=== PATIENT | male | born 1990 | race Caucasian/White ===

== ENCOUNTER 2020-11-23 09:47 | Outpatient (CLI) | payer OTHER, SELFPAY ==
--- NOTE | ~2020-11-23 | CT_ITS ---
EXAMINATION: CT abdomen pelvis wo con DATE: 11/23/2020 10:16 INDICATION: Right lower quadrant pain TECHNIQUE: Computed tomography (CT) of the abdomen and pelvis was performed without intravenous contr ast. The dose-length product (DLP) was 1322.94 mGy-cm. Automated exposure control and iterative recon struction technique were employed. COMPARISON: 06/26/2019 FINDINGS: The lung bases are clear. The heart size is normal. The liver, spleen, pancreas, gallbladde r, and adrenal glands are normal. The kidneys are unremarkable. No pathologically enlarged abdominal or pelvic lymph nodes are identified. There is no free intraperitoneal gas or evidence of bowel obstr uction. The appendix is normal. There are changes of diverting colostomy in the left lower quadrant. There are multiple midline ventral hernias containing fat. There is fat herniating into the left lowe r quadrant colostomy. In addition, the anterior wall of a short segment of nonobstructed small bowel herniates through the colostomy defect in the abdominal wall.. IMPRESSION: 1. Changes of diverting colostomy in the left lower quadrant with herniation of fat and a short segme nt of nonobstructed small bowel through the colostomy defect. Reviewed, dictated and finalized at location B. IMPRESSION: 1. Changes of diverting colostomy in the left lower quadrant with herniation of fat and a short segment of nonobstructed small bowel through the colostomy def ect.
[2020-11-23 10:44] LABS: Basophils Absolute Auto 0.1 K/mm3 (0.0-0.1); Eosinophils Absolute Auto 0.3 K/mm3 (0-0.3); Eosinophils Percent Auto 4.5 % (0-4.4); Hematocrit 47.9 % (42.0-52.0); Hemoglobin 17.2 g/dL (14.0-18.0); Immature Granulocyte Absolute 0.02 K/mm3 (0.00-0.031); Immature Granulocyte Percent A 0.3 % (0-0.5); Lymphocytes Absolute Auto 2.84 K/mm3 (0.9-3.2); Lymphocytes Percent Auto 39.1 % (18.3-44.2); Mean Corpuscular HGB Conc 35.9 g/dl (32-36); Mean Corpuscular Hemoglobin 32.2 pg (26-34); Mean Corpuscular Volume 89.7 fl (80-100); Mean Platelet Volume 9.6 fl (7.4-10.4); Monocytes Absolute Auto 0.5 K/mm3 (0.1-0.6); Monocytes Percent Auto 6.3 % (2.6-8.5); Neutrophils Absolute Auto 3.6 K/mm3 (1.3-6.7); Neutrophils Percent Auto 48.8 % (45.5-73.1); Platelet Count Result 253 k/mm3 (150-375); Red Blood Count 5.34 M/mm3 (4.6-6.20); Red Cell Distribution Width 11.6 % (11.5-14.5); White Blood Count 7.3 K/mm3 (4.5-10.0)
[2020-11-23 10:57] LABS: Alanine Aminotransferase 49 U/L (4-50); Albumin Level 4.8 g/dL (3.5-5.1); Alkaline Phosphatase 66 U/L (38-126); Anion Gap 8 mmol/L (8-16); Aspartate Amino Transferase 32 U/L (17-59); Bilirubin,Total 0.6 mg/dL (0.2-1.3); Blood Urea Nitrogen 11 mg/dL (9-20); Calcium 9.8 mg/dL (8.4-10.2); Carbon Dioxide 28 mmol/L (22-30); Chloride 104 mmol/L (98-107); Estimated Glomerular Filt Rate > 60; Glucose 95 mg/dL (75-110); Potassium 4.3 mmol/L (3.4-5.0); Sodium 140 mmol/L (137-145)
== END 2020-11-23 09:48 | disposition home or self-care (01) ==
PROVIDERS: PCP Physician Assistant; Visit Provider Physician Assistant
DX: R10.9 Unspecified abdominal pain (principal)
CPT/HCPCS: 36415; 74176; 80053; 85025

== ENCOUNTER 2021-10-02 18:07 | Emergency (ER) | payer OTHER, SELFPAY ==
[2021-10-02 18:18] VITALS: BP 125/73; PULSE 100; RESP 16; TEMP 36.5; O2SAT 99
--- NOTE | 2021-10-02 18:37 | ED.URI ---
HPI - URI/Sore Throat General Chief Complaint: Upper Respiratory Infection Stated Complaint: uri Time Seen by Provider: 10/02/21 18:36 Source: patient and RN notes reviewed Mode of arrival: ambulatory Limitations: no limitations History of Present Illness HPI Narrative: 31-year-old male presented for complaint of sore throat and sinus pressure and congestion worsening over the past 3 days. He has been taking several [id number] medications with no relief in symptoms. He denies cough, shortness of breath, nausea, vomiting, diarrhea, fever or chills. He is vaccinated for COVID, second shot 08/02/2021. He works in a [employer]. Denies known sick contacts. MD elicited complaint: cough Related Data Home Medications Medication Instructions Recorded Confirmed buspirone 10 mg PO DAILY 10/02/21 10/02/21 linaclotide [Linzess] 72 mcg PO DAILY 10/02/21 10/02/21 Allergies Allergy/AdvReac Type Severity Reaction Status Date / Time No Known Allergies Allergy Unverified 10/02/21 18:14 Review of Systems Review of Systems: CONSTITUTIONAL: Endorses malaise denies chills, sweats, fever EYES: Denies visual changes, redness, or discharge ENT: Reports rhinorrhea, congestion, sinus pain, otalgia, sore throat CARDIOVASCULAR: Denies chest pain, palpitations, edema RESPIRATORY: Reports cough, post nasal drainage. Denies dyspnea GASTROINTESTINAL: Denies abdominal pain, nausea, vomiting, diarrhea SKIN: Denies rash or itching MUSCULOSKELETAL: Denies myalgia NEUROLOGIC: Reports headache PMFSH Past Medical History Medical History Back injury Back pain DDD (degenerative disc disease) Diverticulitis GERD (gastroesophageal reflux disease) Surgical History Surgical History H/O knee surgery History of back surgery L5-S1 Social History Social History Smoking packs per day: 1 Smoking cigarettes per day: 20.0 Smoking status: Current every day smoker Gender identity (if verbalized by the patient): Male Exam Narrative: GENERAL: Ill-appearing, nontoxic no acute distress. HEAD: Normocephalic EYES: PERRLA, conjunctivae clear ENT: Mucous membranes moist. TM pearly eubanks with dull light reflex bilaterally; no tragal tenderness. Oropharynx erythematous without lesions or exudate, no drooling, no hoarseness, no trismus, uvula midline. No tripod positioning, muffled voice, soft palate or pharyngeal wall bulging NECK: Supple. No lymphadenopathy CHEST: Clear to auscultation, breath sounds equal. No wheezing, rhonchi, rales, or stridor. No respiratory distress, speaks in full sentences. HEART: Regular rate and rhythm. No murmur heard. SKIN: Warm, dry, no rash. NEURO: Alert and oriented x3. PSYCH: Normal mood and affect Course Course Emergency Course: strep, flu, covid tests negative, reviewed with pt. Patient is aware of diagnosis, understands and agrees to treatment plan. Anticipatory guidance given. Patient agrees to follow-up as directed and is aware of reasons to seek care at the emergency department. Portions of this record may have been created with voice recognition software Level of Care: Express Care Visit Vital Signs Vital signs: Vital Signs Temperature 97.7 F 10/02/21 18:18 Pulse Rate 100 10/02/21 18:18 Respiratory Rate 16 10/02/21 18:18 Blood Pressure 125/73 10/02/21 18:18 Pulse Oximetry 99 10/02/21 18:18 Temperature 97.7 F 10/02/21 18:18 Pulse Rate 100 10/02/21 18:18 Respiratory Rate 16 10/02/21 18:18 Blood Pressure 125/73 10/02/21 18:18 Pulse Oximetry 99 10/02/21 18:18 reviewed MDM - URI/Sore Throat Differential Diagnosis Differential diagnosis: Likely upper respiratory infection, sinusitis, viral infection, influenza and pharyngitis Lab Data Labs: Influenza A Screen Negative
== END 2021-10-02 19:08 | disposition home or self-care (01) ==
PROVIDERS: Emergency Provider Nurse Practitioner Family; PCP Physician Assistant
DX: J06.9 Acute upper respiratory infection, unspecified (principal); Z20.822 Contact with and (suspected) exposure to COVID-19; F17.210 Nicotine dependence, cigarettes, uncomplicated; K21.9 Gastro-esophageal reflux disease without esophagitis
CPT/HCPCS: 87081; 87426; 87804; 87880; 99213; C9803; G0463

== ENCOUNTER 2021-10-06 08:03 | Emergency (ER) | payer OTHER, SELFPAY ==
--- NOTE | 2021-10-06 08:07 | ED.URI ---
HPI - URI/Sore Throat General Chief Complaint: Upper Respiratory Infection Stated Complaint: uri Time Seen by Provider: 10/06/21 08:07 Source: patient, family, RN notes reviewed and old records reviewed Mode of arrival: ambulatory Limitations: no limitations History of Present Illness HPI Narrative: 31-year-old male returns to the [facility] after being seen on the 02 October. States that he went back to work yesterday and now needs another work note. Patient denies fevers, chest pain. States he is not getting any worse. States that he is slightly better however he thinks he needs a couple more days off of work and rest. Still having a cough. Denies abdominal pain, nausea vomiting or diarrhea. MD elicited complaint: cough, rhinorrhea, nasal congestion and sinus pain Related Data Home Medications Medication Instructions Recorded Confirmed buspirone 10 mg PO DAILY 10/02/21 10/02/21 linaclotide [Linzess] 72 mcg PO DAILY 10/02/21 10/02/21 Allergies Allergy/AdvReac Type Severity Reaction Status Date / Time No Known Allergies Allergy Unverified 10/02/21 18:14 Review of Systems Review of Systems: All systems reviewed & are unremarkable except as noted in HPI and below Constitutional: Constitutional: Reports no additional constitutional complaints, Denies chills, Denies fever(s) and Denies headache(s) Eyes: Eyes: Reports no additional eye complaints ENT: Reports as per HPI, Denies vertigo, Denies dizziness, Denies headache(s), Reports nasal congestion and Denies sore throat Cardiovascular: Cardiovascular: Reports no additional cardiovascular complaints, Denies chest pain, Denies syncope, Denies rapid heart rate and Denies dyspnea Respiratory: Respiratory: Reports as per HPI, Reports chest congestion, Reports cough, Denies dyspnea and Denies wheezing Gastrointestinal: Gastrointestinal: Reports no additional gastrointestinal complaints, Denies abdominal pain, Denies diarrhea, Denies nausea and Denies vomiting Musculoskeletal: Musculoskeletal: Reports no additional musculoskeletal complaints and Denies numbness Integumentary/Breasts: Skin/Breast: Reports system reviewed and no additional complaints, except as docu Neurologic: Reports system reviewed and no additional complaints, except as documented, Denies vertigo, Denies dizziness, Denies syncope, Denies headache(s), Denies focal weakness and Denies numbness Psychiatric: Psychiatric: Reports no additional psychiatric complaints Allergic/Immunologic: Allergic/Immunologic: Reports no additional allergic/immunologic complaints and Denies wheezing PMFSH Past Medical History Medical History Back injury Back pain DDD (degenerative disc disease) Diverticulitis GERD (gastroesophageal reflux disease) Surgical History Surgical History H/O knee surgery History of back surgery L5-S1 Social History Social History Smoking packs per day: 1 Smoking cigarettes per day: 20.0 Smoking status: Current every day smoker Gender identity (if verbalized by the patient): Male Comments At the time of my signature, I reviewed and agree with the nursing past medical, surgical, social, and family history. There is no relevant family history pertinent to the patient complaint. Exam Const: General: cooperative, healthy appearing, no acute distress, well developed and alert; No ill appearing Nutritional Appearance: well nourished Orientation/consciousness: patient oriented x3 Limitations: no limitations HENMT: Head: normal to inspection Ears: external ears normal, TM's normal bilaterally and EAC's normal General nose exam: Normal external nose present and Normal nasal mucous membranes and turbinates present Face and sinus: normal facial exam Mouth: Yes Normal oral and palatal mucosa present and Yes moist mucous mem
[2021-10-06 08:11] VITALS: BP 135/84; PULSE 80; RESP 16; TEMP 36.8; O2SAT 100
== END 2021-10-06 08:30 | disposition home or self-care (01) ==
PROVIDERS: Emergency Provider Nurse Practitioner; PCP Physician Assistant
DX: J40 Bronchitis, not specified as acute or chronic (principal); K21.9 Gastro-esophageal reflux disease without esophagitis; F17.210 Nicotine dependence, cigarettes, uncomplicated
CPT/HCPCS: 99213; G0463

== ENCOUNTER 2021-10-19 13:32 | Emergency (ER) | payer OTHER, SELFPAY ==
[2021-10-19 13:42] VITALS: BP 129/71; PULSE 88; RESP 16; TEMP 36.9; O2SAT 98
--- NOTE | 2021-10-19 14:54 | ED.BACK ---
HPI - Back Pain/Injury General Chief Complaint: Back Pain/Injury Stated Complaint: lower back pain Time Seen by Provider: 10/19/21 14:43 Source: patient and RN notes reviewed Mode of arrival: ambulatory Limitations: no limitations History of Present Illness HPI Narrative: Patient presents today complaining of right-sided low back pain radiating to the right buttock x2 days. Patient was working in his home cutting down a tree, slipped and stumbled mother and continued work. Now he is experiencing a pinching pain in his back. Denies numbness or tingling in the legs, feet, or genitals. Denies any loss of bowel or bladder control. He currently rates his pain 4/10 and has been taking ibuprofen with mild relief. Pain is occasionally relieved by rest, and exacerbated with movement. History of partial discectomy few years ago. Patient is a commercial loan officer. MD elicited complaint: back pain and back injury Related Data Home Medications Medication Instructions Recorded Confirmed buspirone 10 mg PO DAILY 10/02/21 10/06/21 linaclotide [Linzess] 72 mcg PO DAILY 10/02/21 10/06/21 omeprazole 20 mg PO DAILY 10/06/21 10/06/21 Stool Softener 10/19/21 ibuprofen 10/19/21 Allergies Allergy/AdvReac Type Severity Reaction Status Date / Time gabapentin Allergy Intermediate Other Verified 10/19/21 13:53 Review of Systems Review of Systems: CONSTITUTIONAL: Denies body aches, fever, chills, or sweats. EYES: Denies visual changes, redness, or discharge. ENT: Denies rhinorrhea, congestion, sore throat, or otalgia. CARDIOVASCULAR: Denies chest pain, palpitations, or edema. RESPIRATORY: Denies cough or dyspnea. GASTROINTESTINAL: Denies abdominal pain, nausea, vomiting, or diarrhea. GENITOURINARY: Denies dysuria or hematuria. SKIN: Denies rash, itching, or wounds. MUSCULOSKELETAL: Denies joint pain, or myalgia.+ Back pain NEUROLOGIC: Denies headache, numbness, tingling, or weakness. PSYCH: Denies depression or anxiety. [facility] Past Medical History Medical History Back injury Back pain DDD (degenerative disc disease) Diverticulitis GERD (gastroesophageal reflux disease) Surgical History Surgical History H/O knee surgery History of back surgery L5-S1 Social History Social History Smoking packs per day: 1 Smoking cigarettes per day: 20.0 Smoking status: Current every day smoker Gender identity (if verbalized by the patient): Male Comments At time of signature, I have reviewed and agree with nursing past medical, surgical, social and family history unless otherwise noted. Please see nursing chart for further information. There is no relevant family history pertinent to the presenting complaint Exam Narrative: GENERAL: Well-appearing, well-nourished, and in mild pain distress. HEAD: Normocephalic, atraumatic. EYES: EOMI. No redness or drainage. Conjunctivae normal. ENT: Mucous membranes pink and moist. NECK: Normal AROM. CHEST: No respiratory distress. MUSCULOSKELETAL: No bony tenderness of the thoracic or lumbar spine. Right lower lumbar paraspinal muscle tenderness. No SI joint tenderness. Distal sensation intact. Saddle sensation intact capillary refill normal. Dorsiflexion and plantarflexion normal against resistance. EXTREMITIES: Normal range of motion. No edema. SKIN: Warm, dry, no rash. Capillary refill normal. Normal skin turgor. NEURO: No focal deficits. Alert and oriented x3. Gait steady. PSYCH: Normal affect. No signs of depression or anxiety. Course Course Level of Care: Express Care Visit Vital Signs Vital signs: Vital Signs Temperature 98.5 F 10/19/21 13:42 Pulse Rate 88 10/19/21 13:42 Respiratory Rate 16 10/19/21 13:42 Blood Pressure 129/71 10/19/21 13:42 Pulse Oximetry 98 10/19/21 13
== END 2021-10-19 15:00 | disposition home or self-care (01) ==
PROVIDERS: Emergency Provider Nurse Practitioner; PCP Physician Assistant
DX: S39.012A Strain of muscle, fascia and tendon of lower back, initial encounter (principal); X58.XXXA Exposure to other specified factors, initial encounter; K21.9 Gastro-esophageal reflux disease without esophagitis; F17.210 Nicotine dependence, cigarettes, uncomplicated
CPT/HCPCS: 99213; G0463

== ENCOUNTER 2021-11-05 17:44 | Emergency (ER) | payer OTHER, SELFPAY ==
[2021-11-05 17:54] VITALS: BP 118/77; PULSE 82; RESP 16; TEMP 37; O2SAT 100
--- NOTE | 2021-11-05 17:56 | ED.ABDPAIN ---
HPI - Abdominal Pain General Chief Complaint: Unspecified Stated Complaint: Abdominal Pain Time Seen by Provider: 11/05/21 17:56 Source: patient, RN notes reviewed and old records reviewed Mode of arrival: ambulatory Limitations: no limitations History of Present Illness HPI narrative: 31-year-old male presents to the [facility] with complaints of abdominal pain for the last 2 months. Patient denies any new discomfort states that depending on what he eats he has increased pain. 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 Developed a hernia. For the last 2 months it has been getting worse has an appointment with a surgeon and surgery scheduled for November 07. Has been trying to get the days off prior because he has to work the night before. Is just requesting a work note Denies any new symptoms. Related Data Home Medications Medication Instructions Recorded Confirmed buspirone 10 mg PO DAILY 10/02/21 10/06/21 linaclotide [Linzess] 72 mcg PO DAILY 10/02/21 10/06/21 omeprazole 20 mg PO DAILY 10/06/21 10/06/21 Stool Softener 10/19/21 ibuprofen 10/19/21 Allergies Allergy/AdvReac Type Severity Reaction Status Date / Time gabapentin Allergy Intermediate Other Verified 10/19/21 13:53 Review of Systems Review of Systems: All systems reviewed & are unremarkable except as noted in HPI and below Constitutional: Constitutional: Reports no additional constitutional complaints, Denies chills and Denies fever(s) Eyes: Eyes: Reports no additional eye complaints ENT: Reports system reviewed and no additional complaints, except as documented Cardiovascular: Cardiovascular: Reports no additional cardiovascular complaints Respiratory: Respiratory: Reports no additional respiratory complaints and Denies cough Gastrointestinal: Gastrointestinal: Reports as per HPI, Reports abdominal pain, Denies constipation, Denies diarrhea, Denies nausea and Denies vomiting Musculoskeletal: Musculoskeletal: Reports no additional musculoskeletal complaints Integumentary/Breasts: Skin/Breast: Reports system reviewed and no additional complaints, except as docu Neurologic: Reports system reviewed and no additional complaints, except as documented Psychiatric: Psychiatric: Reports no additional psychiatric complaints Allergic/Immunologic: Allergic/Immunologic: Reports no additional allergic/immunologic complaints PMFSH Past Medical History Medical History Back injury Back pain DDD (degenerative disc disease) Diverticulitis GERD (gastroesophageal reflux disease) Surgical History Surgical History H/O knee surgery History of back surgery L5-S1 Social History Social History Smoking packs per day: 1 Smoking cigarettes per day: 20.0 Smoking status: Current every day smoker Gender identity (if verbalized by the patient): Male Comments At the time of my signature, I reviewed and agree with the nursing past medical, surgical, social, and family history. There is no relevant family history pertinent to the patient complaint. Exam Const: General: healthy appearing, no acute distress and alert Nutritional Appearance: well nourished Orientation/consciousness: patient oriented x3 Limitations: no limitations HENMT: Head: normal to inspection Ears: external ears normal Eyes: Pupils: Equal, round and reactive pupils present Neck: Neck: normal visual inspection, no lymphadenopathy and no meningeal signs Chest: Chest palpation & inspection: normal inspection of the chest Resp: Effort & Inspection: normal respiratory effort and no use of accessory muscles Auscultation: clear to auscultation bilaterally, no crackles, no rales, no rhonchi and no wheezes Cardio: Rate: regular rate Rhythm: regular rhythm
== END 2021-11-05 18:17 | disposition home or self-care (01) ==
PROVIDERS: Emergency Provider Nurse Practitioner; PCP Physician Assistant
DX: G89.29 Other chronic pain (principal); R10.9 Unspecified abdominal pain
CPT/HCPCS: 99211; G0463

== ENCOUNTER 2023-04-24 12:57 | Emergency (ER) | payer OTHER, SELFPAY ==
[2023-04-24 13:23] VITALS: BP 147/81; PULSE 84; RESP 16; TEMP 37.2; O2SAT 100
--- NOTE | 2023-04-24 13:43 | ED.WOUNDLAC ---
HPI - Wound/Laceration General Chief Complaint: Skin/Abscess/Foreign Body Stated Complaint: left index finger cut Time Seen by Provider: 04/24/23 13:50 Source: patient and RN notes reviewed Mode of arrival: ambulatory Limitations: no limitations History of Present Illness HPI narrative: 33-year-old male presents with concern for laceration to the 2nd digit of his left hand. Reports he was cutting meat with a knife yesterday when he cut the digit. He reports part of the nail bed is avulsed, he tried removing it himself but he was unable to. He reports no active bleeding. He is concerned the nail will get caught in her cough, he is also concern for discomfort. He is up-to-date on his tetanus. Related Data Home Medications Medication Instructions Recorded Confirmed buspirone 10 mg tablet 10 mg PO DAILY 10/02/21 04/24/23 omeprazole 20 mg tablet,delayed 20 mg PO DAILY 10/06/21 04/24/23 release Stool Softener 10/19/21 Allergies Allergy/AdvReac Type Severity Reaction Status Date / Time gabapentin Allergy Intermediate Other Verified 04/24/23 13:31 Review of Systems Review of Systems: CONSTITUTIONAL: Denies malaise, chills, sweats, or fever. SKIN: Reports laceration to the distal 2nd left digit MUSCULOSKELETAL: Denies muscle skeletal pain NEUROLOGIC: Denies numbness, weakness All systems reviewed & are unremarkable except as noted in HPI and below PMFSH Past Medical History Medical History Back injury Back pain DDD (degenerative disc disease) Diverticulitis GERD (gastroesophageal reflux disease) Surgical History Surgical History H/O knee surgery History of back surgery L5-S1 Social History Social History Smoking packs per day: 1 Smoking cigarettes per day: 20.0 Smoking status: Current every day smoker Gender identity (if verbalized by the patient): Male Comments At time of signature, agree with nursing past medical, surgical, social and family history. There is no relevant family history pertinent to the presenting complaint Exam Narrative: GENERAL: Well-appearing, well-nourished, and in no acute distress. HEAD: Normocephalic EYES: PERRLA, conjunctivae clear ENT: Mucous membranes moist. NECK: Supple. No lymphadenopathy CHEST: Clear to auscultation. No respiratory distress. HEART: Regular rate and rhythm. SKIN: Warm, dry. Superficial laceration noted to the lateral distal 2nd digit of the left hand that is well-approximated and scabbed. The lateral corner of the nail is lacerated with the nail bed partially attached NEURO: Alert and oriented x3. PSYCH: Normal mood and affect Extrem: Hand/finger images: 1. Nail bed laceration Course Course Emergency Course: Let gel applied to the finger nail and allowed to sit for 20 minutes. Avulsed fingernail was removed with tweezers with a small amount of bleeding afterwards. Pressure was applied for 10 minutes with hemostasis achieved. I did apply Surgicel in case bleeding restarted. Bandage applied. Patient is aware of diagnosis, understands and agrees to treatment plan. Anticipatory guidance given. Patient agrees to follow-up as directed and is aware of reasons to seek care at the emergency department. Portions of this record may have been created with voice recognition software Level of Care: Express Care Visit Vital Signs Vital signs: Vital Signs Temperature 99 F 04/24/23 13:23 Pulse Rate 84 04/24/23 13:23 Respiratory Rate 16 04/24/23 13:23 Blood Pressure 147/81 H 04/24/23 13:23 Pulse Oximetry 100 04/24/23 13:23 Oxygen Delivery Room Air 04/24/23 13:23 Temperature 99 F 04/24/23 13:23 Pulse Rate 84 04/24/23 13:23 Respiratory Rate 16 04/24/23 13:23 Blood Pressure 147/81 H 04/24/23 13:23 Pulse Oximetry 100 04/24/23 13
[2023-04-24] MEDS: LIDOCAINE, EPINEPHRINE, TETRACAINE VISCOUS SOLN 3 ML TOPICAL (13:57)
== END 2023-04-24 14:39 | disposition home or self-care (01) ==
PROVIDERS: Emergency Provider Nurse Practitioner; PCP Physician Assistant
DX: S61.311A Laceration without foreign body of left index finger with damage to nail, initial encounter (principal); W26.0XXA Contact with knife, initial encounter; F17.210 Nicotine dependence, cigarettes, uncomplicated; K21.9 Gastro-esophageal reflux disease without esophagitis
CPT/HCPCS: 11730; 99212; G0463